=== PATIENT | male | born 1975 | race Caucasian/White ===

== ENCOUNTER 2018-11-16 20:00 | Emergency (ER) | payer BC ==
[2018-11-16 20:15] VITALS: BP 162/88
== END 2018-11-16 21:30 | disposition home or self-care (01) ==
LOC: ED 20:00
DX: S90.31XA Contusion of right foot, initial encounter (principal); W22.09XA Striking against other stationary object, initial encounter; Y92.009 Unspecified place in unspecified non-institutional (private) residence as the place of occurrence of the external cause

== ENCOUNTER → 2020-04-07 | Outpatient (CLI) | payer BC | LOC: LAB 10:30 | DX: R19.7 Diarrhea, unspecified (principal) ==

== ENCOUNTER → 2022-05-27 | Outpatient (CLI) | payer BC ==
[2022-05-27 15:35] LABS: POTASSIUM 4.1 mmol/L (3.5-5.1)
[2022-05-27 15:36] LABS: CALCIUM 9.3 mg/dL (8.3-10.5)
== END ==
LOC: LAB 15:09
PROVIDERS: Family Medicine
DX: U07.1 COVID-19 (principal)

== ENCOUNTER → 2024-04-22 | Outpatient (CLI) | payer BC ==
[2024-04-22 12:23] LABS: BASO # 0.03 K/mm3 (0.02-0.10); HEMATOCRIT 44.9 % (42.0-52.0); HEMOGLOBIN 15.2 g/dL (13.5-18.0); LYMPH# 1.76 K/mm3 (1.50-4.00); MEAN CELL VOLUME 89 fl (78-100); MEAN CORPUSCULAR HEMOGLOBIN 30 pg (27-31); MEAN CORPUSCULAR HGB CONC 34 g/dL (33-37); MEAN PLATELET VOLUME 10.8 fl (7.4-10.4); MONO # 0.49 K/mm3 (0.20-0.80); NEU # 7.16 K/mm3 (1.40-6.50); PLATELET COUNT 247 K/mm3 (130-400); RED BLOOD COUNT 5.06 M/mm3 (4.20-5.60); RED CELL DISTRIBUTION WIDTH 12.6 % (11.5-14.5); WHITE BLOOD COUNT 9.6 K/mm3 (4.8-10.8)
[2024-04-22 12:26] LABS: ALBUMIN 4.5 g/dL (3.5-5.0)
[2024-04-22 12:27] LABS: CALCIUM 10.3 mg/dL (8.3-10.5)
[2024-04-22 12:28] LABS: TOTAL PROTEIN 7.4 g/dL (6.4-8.3)
[2024-04-22 12:30] LABS: TOTAL BILIRUBIN 0.6 mg/dL (0.2-1.2)
[2024-04-22 12:34] LABS: MAGNESIUM 2.12 mg/dL (1.60-2.60)
== END ==
LOC: LAB 12:01
PROVIDERS: Internal Medicine
DX: Z00.00 Encounter for general adult medical examination without abnormal findings (principal); Z12.5 Encounter for screening for malignant neoplasm of prostate

== ENCOUNTER → 2025-01-14 | Outpatient (CLI) | payer OTHER ==
[2025-01-14 07:21] LABS: BASO # 0.02 K/mm3 (0.02-0.10); EOS # 0.15 K/mm3 (0.04-0.40); EOS % 2.3 % (0.0-4.0); HEMATOCRIT 46.9 % (42.0-52.0); HEMOGLOBIN 15.8 g/dL (13.5-18.0); LYMPH# 1.56 K/mm3 (1.50-4.00); MEAN CELL VOLUME 90 fl (78-100); MEAN CORPUSCULAR HEMOGLOBIN 30 pg (27-31); MEAN CORPUSCULAR HGB CONC 34 g/dL (33-37); MEAN PLATELET VOLUME 10.5 fl (7.4-10.4); MONO # 0.56 K/mm3 (0.20-0.80); NEU # 4.11 K/mm3 (1.40-6.50); PLATELET COUNT 235 K/mm3 (130-400); RED BLOOD COUNT 5.19 M/mm3 (4.20-5.60); WHITE BLOOD COUNT 6.4 K/mm3 (4.8-10.8)
[2025-01-14 07:28] LABS: ALBUMIN 4.5 g/dL (3.5-5.0)
[2025-01-14 07:29] LABS: CALCIUM 9.2 mg/dL (8.3-10.5)
[2025-01-14 07:30] LABS: TOTAL PROTEIN 7.8 g/dL (6.4-8.3)
[2025-01-14 07:32] LABS: TOTAL BILIRUBIN 0.6 mg/dL (0.2-1.2)
[2025-01-14 07:37] LABS: MAGNESIUM 2.03 mg/dL (1.60-2.60)
[2025-01-15 21:26] LABS: TESTOSTERONE 550 ng/dL (240-871)
== END ==
LOC: LAB 07:07
PROVIDERS: Internal Medicine
DX: K90.9 Intestinal malabsorption, unspecified (principal); F52.21 Male erectile disorder; E78.2 Mixed hyperlipidemia